=== PATIENT | female | born 1970 | race Caucasian/White ===

== ENCOUNTER 2016-12-06 00:22 | Emergency (ER) | payer SELFPAY ==
[~2016-12-06] VITALS: Ht 170.2 cm; Wt 75.0 kg
[2016-12-06 00:26] VITALS: BP 132/94; PULSE 94; RESP 18; TEMP 99.5; O2SAT 97
[2016-12-06 00:31] VITALS: BP 135/88; PULSE 101; RESP 26; TEMP 98.1; O2SAT 99
[2016-12-06 02:45] LABS: BACTERIA, URINE RARE /hpf; BLOOD, URINE SMALL (NEG); GLUCOSE,URINE NEG (NEG); KETONE, URINE 10 mg/dL (NEG); MUCUS URINE MOD /lpf (OCC); NITRITE,URINE NEG (NEG); SQUAMOUS EPITHELIAL CELL URINE 1 /hpf (0-5); URINE COLOR YELLOW (YELLW/STRAW)
[2016-12-06 02:46] LABS: COMMENT (UR) CULT NOT INDICATED; CULTURE IF INDICATED CULT NOT INDICATED
--- NOTE | 2016-12-06 02:56 | PD ---
HPI Chief Complaint: Abdominal Pain Time Seen by Provider: 01:59 Travel History International Travel<30 days: No Contact w/Intl Traveler<30days: No Traveled to known affect area: No History of Present Illness HPI 46-year-old female here with complaint of pelvic pain. Patient has had moderate to severe pelvic pain primarily in the suprapubic and left side over the course the last 1-2 weeks. She has been evaluated at [facility] and had a CT of the abdomen and pelvis showing a mass in the pelvis, possibly within the left ovary. Patient was seen by a [facility] earlier this week who ordered an outpatient ultrasound that showed approximately 8 x 9 cm left- sided ovarian mass. On the ultrasound report there is no evidence of evaluation of Doppler flow for torsion. Patient states that her pain has been increasing, and is now more localized on the left side than it has been previously. Normal urinary habits, no abnormal vaginal discharge or bleeding. She does not believe she is . PFSH Past Medical History ?: Not : 4 Para: 3 Miscarriage: 1 Ovarian Cysts: Yes Social History Alcohol Use: No Tobacco Use: No Substance Use: No Allergies-Medications (Allergen,Severity, Reaction): Coded Allergies: No Known Allergies (Unverified , 12/06/16) Reported Meds & Prescriptions Reported Meds & Active Scripts Active Percocet (Oxycodone-Acetaminophen) 5-325 mg Tab 1-2 Tab PO Q4H PRN Review of Systems Except as stated in HPI: all other systems reviewed are Neg Physical Exam Narrative GENERAL: Uncomfortable female in no mild distress, sitting in a position SKIN: Focused skin assessment warm/dry. HEAD: Normocephalic. EYES: No scleral icterus. No injection or drainage. ENT: No nasal bleeding or discharge. Mucous membranes pink and moist. NECK: Supple CARDIOVASCULAR: Regular rate and rhythm. RESPIRATORY: No accessory muscle use. GASTROINTESTINAL: Abdomen soft, moderate tenderness to palpation in the left lower quadrant and left the suprapubic region. No palpable masses or fullness MUSCULOSKELETAL: Normal gait NEUROLOGICAL: Awake and alert. Normal speech. PSYCHIATRIC: Appropriate mood and affect; insight and judgment normal. Data Data Last Documented VS Vital Signs Date Time Temp Pulse Resp B/P Pulse Ox O2 Delivery O2 Flow Rate FiO2 12/06/16 03:46 63 16 109/60 98 Room Air 12/06/16 00:31 98.1 Orders Urinalysis - C+S If Indicated (12/06/16 01:06) Ed Urine Pregnancytest Poc (12/06/16 01:06) Us Pelvis Comp W Doppler (12/06/16 02:05) Iv Access Insert/Monitor (12/06/16 02:58) Oximetry (12/06/16 02:58) Morphine Inj (Morphine Inj) (12/06/16 03:00) Sodium Chloride 0.9% Flush (Ns Flush) (12/06/16 03:00) Labs Laboratory Tests Test 12/06/16 02:20 Urine Color YELLOW Urine Turbidity CLEAR Urine pH 6.0 Urine Specific [place] 1.026 Urine Protein TRACE mg/dL Urine Glucose (UA) NEG mg/dL Urine Ketones 10 mg/dL Urine Occult Blood SMALL Urine Nitrite NEG Urine Bilirubin NEG Urine Urobilinogen LESS THAN 2.0 MG/DL Urine Leukocyte Esterase TRACE Urine RBC 4 /hpf Urine WBC 3 /hpf Urine Squamous Epithelial 1 /hpf Cells Urine Bacteria RARE /hpf Urine Mucus MOD /lpf Microscopic Urinalysis Comment CULT NOT INDICATED MDM Medical Decision Making Medical Screen Exam Complete: Yes Emergency Medical Condition: Yes Medical Record Reviewed: Yes Differential Diagnosis 46-year-old female here with one to 2 weeks of pelvic pain left greater than right with known left-sided ovarian cyst. Differential includes ovarian cyst, hemorrhagic cyst, ovarian torsion. Less likely tubo-ovarian abscess, PID, endometriosis, or UTI Narrative Course Urinalysis unremarkable. Urine test negative. Patient given morphine for pain. Ultrasound of the pelvis with Doppler flow to the ovary evaluation showed complex 10.5 cm cyst in the left ovary. Small 2.5% meter uterine fibroid. Normal flow to bilateral ovaries. I suspect her pain is related to the sheer size of her ovarian cyst. Patient was reassured, will treat with analgesics and outpatient DEVELOPMENT SPEC follow-up. Diagnosis Primary Impression: Ovarian cyst Referrals: Massotherapist 3 days Additional Instructions: Percocet as needed for pain. Call bed machine operator on Thursday for outpatient follow- up. Med/Other Pt SpecificInfo: Prescription(s) given Scripts Oxycodone-Acetaminophen (Percocet)5-325 mg Tab1-2 Tab PO Q4H PRN (PAIN) #25 TAB Ref 0 Prov:Marlene Mora MD 12/06/16 Disposition: 01 DISCHARGE HOME Condition: Stable Marlene Mora MD Dec 06, 2016 02:56
[2016-12-06] MEDS ORDERED: MORPHINE SULFATE 4 MG/ML INJ IV PUSH ONE (03:00)
[2016-12-06] MEDS ORDERED: SODIUM CHLORIDE 0.9% FLUSH 10 ML FLUSH IV FLUSH PRN (03:00)
[2016-12-06] MEDS ORDERED: PERC5TAB12 PO (03:24)
[2016-12-06 03:46] VITALS: BP 109/60; PULSE 63; RESP 16; O2SAT 98
--- NOTE | 2016-12-06 04:16 | RADRPT ---
EXAM DATE/TIME: 12/06/2016 03:05 [place] COMPARISON: No previous studies available for comparison. INDICATIONS : Pelvic pain. MEDICAL HISTORY : . Miscarriage. SURGICAL HISTORY : None. ENCOUNTER: Initial ACUITY: 2 weeks PAIN SCORE: 8/10 LOCATION: Bilateral pelvis MEASUREMENTS: UTERUS: 10.3 x 5.8 x 5.0 cm ENDOMETRIAL STRIPE: 7 mm RIGHT OVARY: 3.3 x 2.6 x 1.8 cm LEFT OVARY: 4.7 x 4.1 x 3.3 cm FINDINGS: There is a solid mass in the body of uterus measuring about 2.7 cm in diameter characteristic of fibr oid. Right ovary unremarkable. No free fluid. Within the left ovary is a 3.1 cm complex cyst in the midportion and a large exophytic thickwalled 10 .5 cm cyst in the upper portion. CONCLUSION: 1. 2.7 cm uterine fibroid. 2. Complex cyst left ovary present by 3 cm in diameter. Additional large exophytic ovarian cyst measu ring up to 10.5 cm in diameter. Ifeanyi Siddiqi MD on December 06, 2016 at 4:08 Board Certified Radiologist. This report was verified electronically.
== END 2016-12-06 05:21 | disposition home or self-care (01) ==
LOC: NEPE 00:22
DX: N83.202 Unspecified ovarian cyst, left side (principal)
CPT/HCPCS: 76856; 81001; 84703; 93975; 96374; 99285; J2270